=== PATIENT | male | born 1960 ===

== ENCOUNTER 2017-03-27 08:27 | Emergency (ER) | payer OTHER ==
[~2017-03-27] VITALS: Ht 170.2 cm; Wt 65.8 kg
--- NOTE | 2017-03-27 08:45 | NUR ---
ARRIVAL PT TAKEN TO [facility] 5 VIA W/C. PT ABLE TO AMBULATE WELL. ACCOMPANIED BY FRIEND. PT ALERT AND COOP. NO ACUTE DISTRESS. PLACED ON MONITOR AND TRIAGE DONE
--- NOTE | 2017-03-27 09:25 | ER.PDOC ---
General Chief Complaint: Male Stated Complaint: BACK PAIN Time seen by MD: 09:24 Source: patient Exam Limitations: no limitations History of Present Illness Initial Comments Bilateral flank pain for 3 days Severity/Quality: moderate Radiation: no radiation Associated Symptoms: denies symptoms Exacerbated by: nothing Relieved By: nothing Allergies: Coded Allergies: hydrocodone (Verified Allergy, Unknown, hives and sweating, 03/27/17) Vital Signs First Vital Signs Date Time Temp Pulse Resp B/P (MAP) Pulse Ox O2 Delivery O2 Flow Rate FiO2 03/27/17 08:46 97.7 91 20 96 03/27/17 08:49 104/72 (83) Last Vital Signs Date Time Temp Pulse Resp B/P (MAP) Pulse Ox O2 Delivery O2 Flow Rate FiO2 03/27/17 08:49 97.7 91 20 104/72 (83) 96 Past Medical History Medical History: no pertinent history Social History Smoking: less than 1 pack/day Alcohol Use: none Drug Use: none Constitutional: no symptoms reported Respiratory: no symptoms reported Cardiovascular: no symptoms reported Gastrointestinal: no symptoms reported Genitourinary: see HPI Musculoskeletal: no symptoms reported All Other Systems: Reviewed and Negative Physical Exam General Appearance: No Apparent Distress, WD/WN Neck: Non-Tender, Full Range of Motion, Supple, Normal Inspection Respiratory: chest non-tender, lungs clear, normal breath sounds, no respiratory distress, no accessory muscle use Cardiovascular: Normal Peripheral Pulses, Regular Rate, Rhythm, No Edema, No Gallop, No JVD, No Murmur Gastrointestinal: Normal Bowel Sounds, Non Tender, Soft Back: CVA Tenderness (R), CVA Tenderness (L) Extremities: Normal Range of Motion, Non-Tender, Normal Inspection, No Pedal Edema, No Calf Tenderness, Normal Capillary Refill, Pelvis Stable Neurologic/Psychiatric: casting sorter II-XII NML as Tested, No Motor/Sensory Deficits, Alert, Normal Mood/Affect, Oriented x 3 Skin: Normal Color, Warm/Dry EKG/XRAY/CT/US CT Comments: Nothing acute on CT abdomen/pelvis Course Blood Pressure Systolic: 104 Blood Pressure Diastolic: 72 Blood Pressure Mean: 83 Departure Time of Disposition: 11:14 Disposition: 01 HOME, SELF-CARE Impression: Primary Impression: Acute pyelonephritis Condition: Stable Referrals: PCP,UNKNOWN (PCP) PRIMARY CARE PROVIDER Additional Instructions: Cipro Ibuprofen F/u with your PCP in 2-3 days LUCINDA,NEAL E MD Mar 27, 2017 09:25
[2017-03-27] MEDS ORDERED: TORADOL IM ONE (09:30)
[2017-03-27 09:38] LABS: BASOPHIL % 0.3 % (0.0-0.2); EOSINOPHIL # 0.1 10^3/uL (0.0-0.2); EOSINOPHIL % 1.2 % (0.0-5.0); HEMATOCRIT 37.7 % (37.0-53.0); HEMOGLOBIN 12.6 g/dL (13.9-16.3); LYMPHOCYTES % 9.4 % (24.0-44.0); MEAN CELL HGB 28.4 pg (26-34); MEAN CELL HGB CONCENTRATION 33.4 g/dL (33-37); MEAN CORP VOLUME 85.1 fL (78-100); MEAN PLATELET VOLUME 8.8 fL (7.8-11.0); MONOCYTES # 0.7 10^3/uL (0.3-0.8); MONOCYTES % 6.7 % (5.0-12.0); NEUTROPHIL # 8.6 10^3/uL (1.8-7.7); NEUTROPHILS % 82.1 % (41.0-85.0); RED CELL DISTRIBUTION WIDTH 13.3 % (11.5-14.5); WHITE BLOOD CELL 10.5 10^3/uL (4.5-11.0)
[2017-03-27] MEDS ORDERED: TORADOL ONE (09:44)
[2017-03-27 09:53] LABS: CALCIUM 8.8 mg/dL (8.4-10.5); CARBON DIOXIDE 28.2 mmol/L (20.0-32)
--- NOTE | 2017-03-27 10:15 | DIREP ---
PROCEDURE:CT ABD/PELVIS WITHOUT CONTRAST TECHNIQUE:Axial cuts were obtained from the dome of the diaphragm to the ischial tuberosities. No intravenous contrast was given. The images were viewed at lung and soft tissue settings. Sagittal and coronal reconstructions are provided. COMPARISON:None. INDICATIONS:Flank pain FINDINGS: LOWER CHEST:The lung bases are clear. LIVER:Normal. BILIARY:Normal. PANCREAS:Normal. SPLEEN:Normal. URINARY TRACT:No urinary tract calculi are demonstrated. There is no hydronephrosis. ADRENALS:Normal. AORTA/VASCULAR:Atherosclerotic calcifications. RETROPERITONEUM:Normal. BOWEL/MESENTERY:The vermiform appendix is visualized, and has a normal appearance. No bowel dilatation is identified. ABDOMINAL WALL:Normal. PELVIS:The prostate measures about 4.3 cm transverse. BONES:Normal. OTHER:Normal. CONCLUSION: 1. No urinary tract calculi demonstrated. 2. Prostate hypertrophy. Dictated by: Henry Jaeger III, MD on 03/27/2017 at 10:01 AM
[2017-03-27 10:50] LABS: BILIRUBIN,URINE NEGATIVE (NEGATIVE); UROBILINOGEN,URINE NORMAL (NEGATIVE)
[2017-03-27 10:59] LABS: APPEARANCE,URINE CLOUDY (CLEAR); UA COLOR AMBER (YELLOW)
[2017-03-27 11:00] LABS: WBC,URINE TNTC WBC/HPF (0-2)
[2017-03-27] MEDS ORDERED: ROCEPHIN IM IM STA (11:15)
[2017-03-27] MEDS ORDERED: LIDOCAINE 1% VIAL ONE (11:18)
[2017-03-27] MEDS ORDERED: ROCEPHIN ONE (11:19)
== END 2017-03-27 11:35 | disposition home or self-care (01) ==
LOC: ER 08:27
DX: N10 Acute pyelonephritis (principal); F17.200 Nicotine dependence, unspecified, uncomplicated; Z88.5 Allergy status to narcotic agent
CPT/HCPCS: 36415; 74176; 80053; 81000; 85025; 85610; 85730; 87077; 87086; 87186; 96372 ×2; 99285; J0696; J1885; J2001